=== PATIENT | female | born 1980 | race Caucasian/White ===

== ENCOUNTER 2022-02-26 19:26 | Emergency (ER) | payer BC, OTHER ==
[2022-02-26] MEDS ORDERED: Sodium Chloride 0.9% 10 ML Syringe FLUSH PRN (19:57)
[2022-02-26] MEDS ORDERED: Ketorolac 30 MG/ML SDV IVPUSH ONE (20:03)
[2022-02-26 21:28] LABS: ESTIMATED GFR 115 mL/min (>60)
[2022-02-26 22:17] VITALS: BP 106/67; PULSE 67
== END 2022-02-26 22:15 | disposition home or self-care (01) ==
LOC: JD.ED 19:26
DX: R07.89 Other chest pain (principal)
CPT/HCPCS: 36415; 71045; 80053; 83735; 84484; 85025; 85379; 86140; 93005; 96374; 99285; J1885; J3490